=== PATIENT | male | born 1960 | race Caucasian/White ===

== ENCOUNTER 2017-10-02 12:07 | Emergency (ER) | payer BC ==
[2017-10-02 12:17] VITALS: BP 179/107; PULSE 64; RESP 18; TEMP 97.7; O2SAT 90
[2017-10-02] MEDS ORDERED: CLINDAMYCIN 150MG PREPACK#6 BTL TAKEHOME ONE (12:40)
--- NOTE | 2017-10-02 12:41 | EDPHY ---
H & P Time Seen by Provider: 10/02/17 12:23 HPI/ROS: 57-year-old male presents complaining of right thumb pain with redness and swelling. He states he had a hangnail that he picked off of his nail in after that time it became red painful and swollen he states that his had some clear drainage. He denies fever or chills Review of systems As per HPI General no fever no chills no weakness HEENT no eye pain no eye discharge. No eye redness, no sore throat Respiratory no cough, no shortness of breath Cardiac no chest pain, no peripheral edema GI no abdominal pain, no diarrhea, no constipation, no nausea, no vomiting no flank pain, no hematuria, no dysuria Musculoskeletal no myalgias, no joint pain Heme no easy bruising, no easy bleeding Endo no polyuria, no polydipsia Skin positive rashes, no pruritus Neuro no syncope, no dizziness, no headaches Psych is no suicidal ideation, no homicidal ideation Past Medical/Surgical History: Obesity Type 2 diabetes Hyperlipidemia BPH Social History: Denies alcohol or drug use Smoking Status: Never smoked Physical Exam: 57-year-old male Alert and oriented in no acute distress nontoxic appearance, afebrile Atraumatic normocephalic Neck no JVD Lungs clear to auscultation, no respiratory distress Heart regular rate and rhythm Extremities no cyanosis clubbing edema Right hand-right thumb Tenderness to palpation at lateral aspect of nail bed right thumb, no fluctuance , no masses Erythema at lateral aspect of nail bed Full range of motion, good capillary refill, sensation intact Constitutional: Initial Vital Signs Temperature (C) 36.5 C 10/02/17 12:15 Heart Rate 64 10/02/17 12:15 Respiratory Rate 18 10/02/17 12:15 Blood Pressure 179/107 H 10/02/17 12:15 O2 Sat (%) 90 L 10/02/17 12:15 O2 Delivery Mode Room Air Allergies/Adverse Reactions: No Known Allergies Allergy (Unverified 10/02/17 12:14) Home Medications: Medication Instructions Recorded Atorvastatin Calcium 10/02/17 Clindamycin HCl [Clindamycin] 300 mg PO TID #30 cap 10/02/17 Flomax 10/02/17 Januvia 100 MG (*) 10/02/17 Singulair 11/23/Whitney Howard 10/02/17 Medical Decision Making ED Course/Re-evaluation: Patient seen and evaluated for right thumb pain Impression Paronychial infection Currently no evidence of fluctuance-no incision and drainage done on this visit Plan Clindamycin Follow-up PCP Differential Diagnosis: Paronychia lung infection, paronychia abscess, ingrowing nail - Data Points Medications Given: Discontinued Medications Clindamycin (Cleocin 150 Mg Prepack#6) 1 btl TAKEHOME EDNOW ONE PRN Reason: Protocol Stop: 10/02/17 12:41 Last Admin: 10/02/17 12:52 Dose: 1 btl Departure - Departure Disposition: Home, Routine, Self-Care Clinical Impression: Paronychia of finger of right hand Condition: Good Instructions: Clindamycin (By mouth), Paronychia (ED) Referrals: HERU,UNKNOWN [Other] - As per Instructions Prescriptions: Clindamycin HCl [Clindamycin] 300 mg PO TID #30 cap
== END 2017-10-02 12:53 | disposition home or self-care (01) ==
LOC: CED 12:07
DX: L03.011 Cellulitis of right finger (principal); E11.9 Type 2 diabetes mellitus without complications